=== PATIENT | male | born 1965 | race Caucasian/White ===

== ENCOUNTER 2018-11-26 00:29 | Outpatient (CLI) | payer BC, SELFPAY ==
--- NOTE | 2018-11-26 08:30 | ETT_ITS ---
APPROVED REPORT Exam: Exercise Treadmill Patient Location: Out-Patient Room/Bed: Stress Nurse: Jennifer Hayes RN Rhythm: NSR Indications: Pt reports a history of a cardiac stent in 2013. Pt states he has had no chest pain symp toms since his cardiac stent. Pt is here for a CDL physical clearance. Pt smokes cigars occasionally. Medical History Medical History: CAD s/p stent Medications: Atorvastatin. Aspirin. Nitroglycerin. Allergies: Bisacodyl. Cardiac Risk Factors: Smoking Previous Cardiac Procedures: PCI Pretest Chest Pain Characteristics: No chest pain Exercise History: Physically active Stress Test Details Test: Exercise stress testing was performed using a Young protocol. Rest Stress HR Resting HR: 70 bpm Max Heart Rate (APMHR): 166 bpm Max HR Achieved: 171 bpm Target HR (85% APMHR): 141 bpm % of APMHR: 103 Recovery HR: 99 bpm HR response to stress: Normal HR response to stress BP Resting BP: 146/88 mmHg Max BP: 210/76 mmHg Recovery BP: 140/76 mmHg BP response to stress: Normal blood pressure response to stress. ECG Resting ECG: Sinus Rhythm ST Change: Normal Arrhythmia: None Recovery ECG: Sinus Rhythm Recovery ST Change: Normal Recovery Arrhythmia: None Clinical Reason for Termination: Maximal effort Exercise duration: 12 min Highest Stage Achieved: Stage 4: 4.2 mph at 16% grade. Exercise capacity: 13.48 METs Overall Exercise Capacity for Age: Excellent Scale: Active Angina Score: None Stress ECG Conclusion 1. Excellent exercise capacity 2. This represents a maximal stress test 3. There is no evidence of ischemia on ECG portion of stress exam 4. This is a normal ECG stress exam. 5. The Posey Score (12) estimates an annual cardiovascular mortality of 0% and a five year survival of 96% Using the Posey Score there is a low probability of any angiographic coronary disease. Test Summary standing 94 152/94 1 03:00 10 1.7 107 4.64 172/94 2 02:59 12 2.5 120 7.05 182/90 3 03:00 14 3.4 138 10.16 196/92 4 03:00 16 4.2 171 13.48 1 min recovery 129 210/76 3 min recovery 98 186/78 6 min recovery 99 140/76
== END 2018-11-26 00:49 ==
PROVIDERS: PCP Internal Medicine; Visit Provider Nurse Practitioner Family
DX: I25.10 Atherosclerotic heart disease of native coronary artery without angina pectoris (principal); Z95.5 Presence of coronary angioplasty implant and graft; I10 Essential (primary) hypertension; F17.200 Nicotine dependence, unspecified, uncomplicated; Z02.79 Encounter for issue of other medical certificate
CPT/HCPCS: 93017

== ENCOUNTER 2019-03-16 00:45 | Outpatient (CLI) | payer BC, SELFPAY ==
--- NOTE | 2019-03-16 14:55 | DI.RAD_ITS ---
EXAM: XR KNEE RT 4V AP,LAT,TIFFANY,PAT INDICATION: PATELLOFEMORAL PAIN X 8 MONTHS. COMPARISON: No exams were available for comparison TECHNIQUE: 2D digital imaging was performed. FINDINGS: Joint spaces are well maintained. There is mild periarticular spurring. There is a small circumscri bed rounded bony density seen on the lateral view posteriorly, which could represent a loose body jodi karissa ossicle. No joint effusion is seen. IMPRESSION: Mild degenerative changes. Question loose body.
== END 2019-03-16 01:05 ==
PROVIDERS: PCP Internal Medicine; Visit Provider Chiropractor Orthopedic
DX: M79.604 Pain in right leg (principal); M25.561 Pain in right knee; M17.11 Unilateral primary osteoarthritis, right knee
CPT/HCPCS: 73564

== ENCOUNTER 2019-08-12 21:37 | Outpatient (REF) | payer BC, SELFPAY ==
[2019-08-12 21:18] LABS: Calculated LDL 81 mg/dL (<100); Cholesterol 138 mg/dL (<200); HDL Cholesterol 28 mg/dL (40-60); Triglyceride 148 mg/dL (<150)
== END 2019-08-12 21:57 ==
LOC: NCHCN 21:37
PROVIDERS: PCP Internal Medicine; Visit Provider Internal Medicine
DX: Z00.00 Encounter for general adult medical examination without abnormal findings (principal); I25.10 Atherosclerotic heart disease of native coronary artery without angina pectoris; E66.9 Obesity, unspecified
CPT/HCPCS: 80061

== ENCOUNTER 2020-01-06 08:58 | Outpatient (REF) | payer BC, SELFPAY ==
[2020-01-07 10:24] LABS: Calculated LDL 78 mg/dL (<100); Cholesterol 145 mg/dL (<200); HDL Cholesterol 32 mg/dL (40-60); Triglyceride 175 mg/dL (<150)
== END 2020-01-06 09:18 ==
LOC: NCHCN 08:58
PROVIDERS: PCP Internal Medicine; Visit Provider Internal Medicine
DX: I25.10 Atherosclerotic heart disease of native coronary artery without angina pectoris (principal); E66.9 Obesity, unspecified; Z68.33 Body mass index [BMI] 33.0-33.9, adult
CPT/HCPCS: 80061

== ENCOUNTER 2020-01-10 18:55 | Emergency (ER) | payer OTHER, SELFPAY ==
[2020-01-10 19:03] VITALS: BP 156/84; PULSE 98; RESP 16; TEMP 36.6; O2SAT 98
--- NOTE | 2020-01-10 19:38 | W.ED.GENAD ---
Discharge Plan Disposition Patient Disposition: HOME Condition: Stable Discharge Details Clinical Impression: Contusion of lower leg, right, Fracture of left shoulder Primary Care Provider: Zohaib Han ED Provider: Bart Veloz Home Meds and New Rx's Prescriptions: Continued atorvastatin 80 MG tablet 80 mg PO HS RF: 0 aspirin [Aspir-81] 81 MG tablet,delayed release (DR/EC) 81 mg PO DAILY RF: 0 Joint Support Complex 1 EACH capsule 2 ea PO BID RF: 0 ibuprofen 600 MG tablet 600 mg PO TID PRN PRNQty: 60 RF: 0 nitroglycerin 0.4 MG tablet, sublingual 0.4 mg Sublingual DIRECTED RF: 0 multivitamin 1 EACH capsule 1 ea PO DAILY RF: 0 Discharge Instructions Instructions: How to Use a Sling (ED), Contusion in Adults (ED) Additional Instructions: Please take ibuprofen as prescribed 600 mg every 6-8 hours as needed for pain. Use shoulder sling. Please follow-up with orthopedics. Please contact your primary care physician or occupational medicine as directed by your employer to arrange follow-up. Return to the ER for any worsening or new concerning symptoms. Stand Alone Forms: Work Release Referrals: [facility] [Provider Group] Occupational Medicine [Outside] Zohaib Han MD [Primary Care Provider] - Medical Decision Making 54-year-old male here with workplace injury, slipped and fell on file injuring right lower leg and left shoulder. Suspect contusion to the ED right anterior medial mid lower leg. Consider fracture. No signs of compartment syndrome. Suspect shoulder strain. Consider fracture. X-ray of the right lower extremity was reviewed and interpreted by radiology: IMPRESSION: No acute fracture or dislocation. Contusions of the medial right calf. X-ray of the left shoulder was reviewed and interpreted by radiology: IMPRESSION: 1. Possible avulsion fragment measuring 1.8 cm adjacent to the greater tuberosity. Comparison with prior radiographs or correlation with history of calcific tendinosis or loose body is suggested. Follow-up MRI may be useful for evaluation. 2. Mild to moderate degenerative joint space narrowing. No dislocation. Reviewed results with the patient. Patient was placed in a shoulder sling. Patient was advised to keep his leg elevated as much as possible over the next few days and continue with anti-inflammatories. He was encouraged to return for any signs of compartment syndrome which were reviewed with him. I will refer the patient to follow-up with orthopedics for his shoulder injury. HPI General Mode of arrival: ambulatory. Date/Time Provider Initiated Documentation: 01/10/20 18:55. Limitations to Documentation: no limitations. Information obtained by: patient. HPI Narrative: 54-year-old male presents with chief complaint of right lower leg pain. Patient notes he slipped off of a plow today while climbing over and impacted his right medial mid lower leg on the plow. He did not sustain laceration. During the fall he also tried the catch himself with his left arm and injured his shoulder. This occurred this morning. He did continue to work. Pain has worsened over the course of the day. No associated numbness or tingling. Pain is leg is now moderate, worse with ambulation. Related Data Home Medications Medication Instructions Recorded Confirmed aspirin [Aspir-81] 81 mg PO DAILY 04/07/15 01/10/20 atorvastatin 80 mg PO HS tab-cap 11/25/16 01/10/20 multivitamin 1 ea PO DAILY 12/13/16 01/10/20 nitroglycerin 0.4 mg SUBLINGUAL DIRECTED 12/13/16 01/10/20 Joint Support Complex 2 ea PO BID 05/20/17 01/10/20 ibuprofen 600 mg PO TID PRN PRN #60 tablet 05/22/17 01/10/20 Previous Rx's Medication Instructions Recorded ibuprofen 600 mg PO TID PRN PRN #60 tablet 05/22/17 Allergies Allergy/AdvReac Type Severity Reaction Status Date / Time bisacodyl AdvReac Unverified 06/02/17 11:12 [From Dulcolax (bisacodyl)] General Stated Complaint: Orthopedic JARROD: 3 Review of Systems Musculoskeletal Musculoskeletal: Reports as per HPI Integumentary/Breasts Comments: No laceration Neurologic Neurologic: Reports as per HPI [facility] Medical History CAD (coronary artery disease) Obesity Surgical History Colonoscopy - MAC (12/16/16) Repair of umbilical hernia Social History Smoking/Tobacco Use Status: Former Tobacco Use Smoking risk assessment performed?: Yes Drug use: Never Do you feel safe in your relationship?: Yes Exam Const General: cooperative and no acute distress HENMT Mouth: moist mucous membranes Cardio Rate: regular rate and not tachycardic Rhythm: regular rhythm Skin General skin exam: no rashes or lesions noted Neuro General: patient alert, patient awake, patient oriented x3 and tone normal Motor: other (Motor intact distally right lower extremity) Sensory Exam: no sensory deficits noted (Distally right lower extremity) Extrem Left upper extremity: shoulder/upper arm Details: tenderness Location: of the proximal humerus, axillary nerve sensory function normal and other (Full range of motion but pain with motion above 90 degrees abduction); no swelling Right lower extremity: lower leg Details: tenderness Location: of the midshaft tibia, localized swelling and ecchymosis (Radial mid tibia); no lacerations Course Vital Signs Vital signs: Vital Signs Temperature 36.6 C 01/10/20 19:03 Pulse 98 H 01/10/20 19:03 Respiratory Rate 16 01/10/20 19:03 Blood Pressure 156/84 H 01/10/20 19:03 Pulse Oximetry 98 01/10/20 19:03 Temperature 36.6 C 01/10/20 19:03 Temperature Source Temporal Artery Scan 01/10/20 19:03 Pulse 98 H 01/10/20 19:03 Respiratory Rate 16 01/10/20 19:03 Respiratory Effort 01/10/20 19:07 Blood Pressure 156/84 H 01/10/20 19:03 Blood Pressure Position Supine 01/10/20 19:03 Pulse Oximetry 98 01/10/20 19:03 Oxygen Delivery Method Room Air 01/10/20 19:03 Oxygen Flow Rate 0 01/10/20 19:03 Pain Level 8 01/10/20 19:13
--- NOTE | 2020-01-10 19:40 | DI.RAD_ITS ---
EXAM: XR SHOULDER LT COMPLETE 2+V CLINICAL HISTORY: pain lateral, injury. TECHNIQUE: 2D digital imaging was performed. COMPARISON: No exams were available for comparison FINDINGS: BONES: No acute fracture is present. No bony destructive lesion is seen. JOINTS: No dislocation present. There are degenerative changes at the AC joint and glenohumeral joint . There is spurring at the tip the acromion. SOFT TISSUE: Normal. There is a smoothly marginated calcification adjacent to the humeral head, consi stent calcific tendinosis. IMPRESSION: Calcific tendinosis. Mild degenerative changes. DATA REPOSITORY: RADIATION DOSE DELIVERED:
--- NOTE | 2020-01-10 19:41 | DI.RAD_ITS ---
EXAM: XR TIB/FIB RT CLINICAL HISTORY: pain, injury, bruising medial lower leg. TECHNIQUE: 2D digital imaging was performed. COMPARISON: No exams were available for comparison FINDINGS: BONES: No acute fracture is present. No bony destructive lesion is seen. Visualized portion of knee a nd ankle joints are unremarkable. SOFT TISSUE: Diffuse soft tissue edema. IMPRESSION: Soft tissue edema. No acute bony abnormality. DATA REPOSITORY: RADIATION DOSE DELIVERED:
--- NOTE | 2020-01-10 19:52 | DI.VRAD_ITS ---
PROCEDURE INFORMATION: Exam: XR Left Shoulder Exam date and time: 01/10/2020 7:40 PM Age: 54 years old Clinical indication: Injury or trauma; Fall; Work related; Blunt trauma (contusions or hematomas); Left; Injury date: 01/10/20; Injury details: Slipped and caught self injuring shoulder TECHNIQUE: Imaging protocol: XR Left shoulder. Views: 2 or more views. COMPARISON: No relevant prior studies available. FINDINGS: Bones/joints: A 1.8 cm oval calcific density adjacent to the greater tuberosity. Consider avulsion fragment or less likely a loose body or calcific tendinosis. No fracture of the humerus or dislocation at the shoulder joint. Mild glenohumeral and moderate acromioclavicular joint space narrowing. Lungs: The visualized left upper lung field is clear. Soft tissues: Normal. IMPRESSION: 1. Possible avulsion fragment measuring 1.8 cm adjacent to the greater tuberosity. Comparison with prior radiographs or correlation with history of calcific tendinosis or loose body is suggested. Follow-up MRI may be useful for evaluation. 2. Mild to moderate degenerative joint space narrowing. No dislocation. Dictated and Authenticated by: Adam Vincent MD. Ordering:BRYANNA Arriaga MD
--- NOTE | 2020-01-10 19:53 | DI.VRAD_ITS ---
PROCEDURE INFORMATION: Exam: XR Right Tibia and Fibula Exam date and time: 01/10/2020 7:40 PM Age: 54 years old Clinical indication: Injury or trauma; Fall; Work related; Blunt trauma; Lower leg; Right; Injury date: 3; Injury details: Slipped and fell at work hitting on a plow, bruising and pain mid to lower shaft TECHNIQUE: Imaging protocol: XR Right tibia and fibula. Views: 2 views. COMPARISON: CR XR KNEE RT 4V AP,LAT,TIFFANY,PAT 03/16/2019 2:47 PM FINDINGS: Bones/joints: No acute fracture or dislocation. Soft tissues: Extensive soft tissue edema in the medial right calf. IMPRESSION: No acute fracture or dislocation. Contusions of the medial right calf. Dictated and Authenticated by: Adam Vincent MD. Ordering:BRYANNA Arriaga MD
[2020-01-10 20:10] VITALS: BP 144/82; PULSE 88; RESP 16; O2SAT 97
[2020-01-10 20:21] VITALS: BP 156/84; PULSE 98; RESP 18; O2SAT 98
== END 2020-01-10 20:21 | disposition home or self-care (01) ==
PROVIDERS: Emergency Provider Student in an Organized Health Care Education/Training Program; PCP Internal Medicine
DX: S80.11XA Contusion of right lower leg, initial encounter (principal); S42.92XA Fracture of left shoulder girdle, part unspecified, initial encounter for closed fracture; W22.8XXA Striking against or struck by other objects, initial encounter; Y99.0 Civilian activity done for income or pay
CPT/HCPCS: 99284; 73030; 73590; 99282; L3650

== ENCOUNTER 2020-01-24 14:07 | Outpatient (CLI) | payer OTHER, BC, SELFPAY ==
--- NOTE | 2020-01-24 | DI.US_ITS ---
EXAM: US LOWER EXTREMITY VENOUS RT CLINICAL HISTORY: SWELLING RT LOWER LEG R22.41, RT CALF PAIN M79.661 TECHNIQUE: Ultrasound performed using standard protocol. COMPARISON: US STRESS ECHOCARDIGRAM {[id number]} from 04/07/2014 FINDINGS: Duplex evaluation of the deep venous system of the right lower extremity was performed according to t usual protocol. There is no evidence of deep venous thrombosis and visualized superficial vessels appear normal as we ll. There is a complex avascular predominantly cystic mass of the right medial calf, the appearance is co nsistent with hematoma although other etiologies are not excluded on the basis of this examination. Clinical correlation requested. IMPRESSION: No evidence of DVT. Presumed medial calf hematoma as described above. This measures about 55 x 33 x 21 millimeters in diameter. DATA REPOSITORY:
== END 2020-01-24 14:27 ==
PROVIDERS: PCP Internal Medicine; Visit Provider Internal Medicine
DX: R22.41 Localized swelling, mass and lump, right lower limb (principal); M79.661 Pain in right lower leg; R93.6 Abnormal findings on diagnostic imaging of limbs
CPT/HCPCS: 93971

== ENCOUNTER 2020-05-02 00:57 | Outpatient (CLI) | payer BC, SELFPAY ==
--- NOTE | 2020-05-02 08:00 | ETT_ITS ---
APPROVED REPORT Exam: Exercise Treadmill Patient Location: Out-Patient Room/Bed: Stress Nurse: Marbella Posadas RN Ordering Provider:KINGS MANCUSO, Contact Number: [phone] BMI: 32.63 Baseline Rhythm: Sinus Rhythm Indications: CAD, HEALTH EXAM OF DEFINED SUBPOPULATION. Medical History Medical History: Obesity, HTN, HLD, CAD. Cardiac Medications: Aspirin, Nitro SL, Rosuvastatin, Allergies: Docusate sodium Cardiac Risk Factors: HTN, Hyperlipidemia, CVD, Obesity Previous Cardiac Procedures: PCI w/ stent placement (unknown date) Pretest Chest Pain Characteristics: No chest pain Exercise History: Sedentary Physical Disabilities: None Lung Sounds: Clear to auscultation Heart Sounds: Regular Stress Test Details Test: Exercise stress testing was performed using a Young protocol. Rest Stress HR Resting HR Supine: 77 bpm Max Heart Rate (APMHR): 165 bpm Resting HR Standin bpm Target HR (85% APMHR): 140 bpm Max HR Achieved: 169 bpm % of APMHR: 102 Recovery HR: 99 bpm HR response to stress: Normal HR response to stress BP Resting BP Supine: 148/98 mmHg Resting BP Standin/94 mmHg Max BP: 192/84 mmHg Recovery BP: 150/88 mmHg BP response to stress: Normal blood pressure response to stress. ECG Resting ECG: Sinus Rhythm Ectopy: None. Stress ECG: Sinus Tachycardia ST Change: No significant ST segment changes noted Arrhythmia: PVC Recovery ECG: Sinus Tachycardia Recovery ST Change: No significant ST segment changes noted Recovery Arrhythmia: PAC Clinical Reason for Termination: Fatigue Stress Symptoms: General Fatigue Exercise duration: 12 min0 sec Highest Stage Reached: Stage 4: 4.2 mph at 16% grade. Exercise capacity: 13.48 METs Posey Treadmill Score: 11.4 Rate Pressure Product: 69021 Stress ECG Conclusion 1. The resting electrocardiogram was normal 2. Patient exercised on the Young protocol and completed a workload of 13.48 METS. There were no sym ptoms of angina 3. Normal heart rate and blood pressure response to exercise. The patient achieved 100% of predicted heart rate for age 4. Electrocardiographically there was no evidence of myocardial ischemia 5. Sporadic atrial and ventricular ectopic beats were noted Posey Treadmill Score is 11.4 which is Low risk. Stress Test Summary STAGE Time (mins) Speed (mph) Grade (%) HR BP SYMPTOMS METS Supine 77 148/98 Standing 88 150/94 1 3 1.7 10 111 152/96 4.6 2 6 2.5 12 120 160/90 7 3 9 3.4 14 135 174/88 10.2 4 12 4.2 16 169 12.9 1 min recovery 141 192/84 3 min recovery 107 174/88 6 min recovery 104 150/88
== END 2020-05-02 01:17 ==
PROVIDERS: PCP Internal Medicine; Visit Provider Internal Medicine
DX: I49.1 Atrial premature depolarization (principal); I49.3 Ventricular premature depolarization; I25.10 Atherosclerotic heart disease of native coronary artery without angina pectoris; I10 Essential (primary) hypertension; E78.5 Hyperlipidemia, unspecified; E66.9 Obesity, unspecified
CPT/HCPCS: 93017

== ENCOUNTER 2020-05-12 09:10 | Outpatient (CLI) | payer BC, SELFPAY ==
[2020-05-12 10:12] LABS: Source Nasal/Nares
[2020-05-12 12:34] LABS: COVID-19 PCR Negative (Negative)
== END 2020-05-12 09:11 | disposition home or self-care (01) ==
LOC: LBO 09:12
PROVIDERS: PCP Internal Medicine; Visit Provider Family Medicine
DX: Z20.822 Contact with and (suspected) exposure to COVID-19 (principal)
CPT/HCPCS: 87635

== ENCOUNTER 2020-05-22 19:51 | Outpatient (CLI) | payer OTHER, SELFPAY ==
--- NOTE | 2020-05-22 09:40 | DI.MRI_ITS ---
EXAM: MR UPPER JOINT LT WO CLINICAL HISTORY: SHOULDER PAIN, ? ROTATOR CUFF TEAR. TECHNIQUE: Multiplanar multisequence MRI was performed. COMPARISON: CR,XR XR SHOULDER LT COMPLETE 2+V from 01/10/2020 FINDINGS: BONES: There is no fracture or contusion pattern. JOINTS: Mild degenerative changes are seen at the acromioclavicular joint. The glenohumeral joint is normal. TENDONS: Supraspinatus: There is hyperintense signal seen in the supraspinatus tendons consistent with a parti al tear. There is thickening of the tendon consistent with tendinosis. Infraspinatus: Unremarkable. Subscapularis: There is thickening and hyperintense signal seen in the subscapularis tendon. This ma y represent tendinosis and/or partial tear. Teres Minor: Unremarkable. Biceps and [place]: Unremarkable. MUSCLES: Unremarkable. GLENOID LABRUM: Unremarkable on this noncontrast examination. SOFT TISSUES: Unremarkable. LIGAMENTS: Unremarkable. OTHER: Subacromial and subdeltoid bursae are unremarkable. IMPRESSION: 1. Findings suspicious for partial thickness tear of the supraspinatus tendon. 2. Tendinosis and/or partial tear of the subscapularis tendon. 3. Mild degenerative changes of the acromioclavicular joint. DATA REPOSITORY:
== END 2020-05-22 20:11 ==
PROVIDERS: PCP Internal Medicine; Visit Provider Chiropractor Orthopedic
DX: M25.512 Pain in left shoulder (principal); M19.012 Primary osteoarthritis, left shoulder; M75.82 Other shoulder lesions, left shoulder
CPT/HCPCS: 73221

== ENCOUNTER 2021-07-02 09:42 | Outpatient (CLI) | payer OTHER, SELFPAY ==
--- NOTE | 2021-07-02 08:45 | DI.RAD_ITS ---
Exam(s) XR KNEE RT 3V AP,LAT,TIFFANY EXAM: XR KNEE RT 3V AP,LAT,TIFFANY CLINICAL HISTORY: right knee pain. TECHNIQUE: 2D digital imaging was performed of the right knee. Three views obtained. AP, lateral an d PA tunnel views were obtained. COMPARISON: CR XR KNEE RT 4V AP,LAT,TIFFANY,PAT from 03/16/2019 FINDINGS: BONES: No acute fracture is present. No bony destructive lesion is seen. JOINTS: The knee is normally aligned. There is a tiny joint effusion. There is mild narrowing of the medial femoral tibial joint. Mild spurring is seen at the posterior patella and the medial femoral tibial joint. SOFT TISSUE: Normal. IMPRESSION: Mild degenerative changes and small joint effusion. DATA REPOSITORY: RADIATION DOSE DELIVERED:
== END 2021-07-02 09:43 | disposition home or self-care (01) ==
LOC: DIORS 09:42
PROVIDERS: PCP Internal Medicine; Visit Provider Internal Medicine
DX: M25.561 Pain in right knee (principal); M25.461 Effusion, right knee; M17.11 Unilateral primary osteoarthritis, right knee
CPT/HCPCS: 73562

== ENCOUNTER → 2021-09-17 00:51 | Outpatient (CLI) | payer OTHER, SELFPAY ==
--- NOTE | 2021-09-17 06:30 | DI.MRI_ITS ---
Exam(s) MR LOWER JOINT RT WO EXAM: MR LOWER JOINT RT WO CLINICAL HISTORY: pain, internal derangement rt knee, m23.91 TECHNIQUE: Multiplanar multisequence MRI was performed.. COMPARISON: CR XR KNEE RT 3V AP,LAT,TIFFANY from 07/02/2021 FINDINGS: MR examination of the knee was performed according to the usual protocol. There is a small knee joint effusion. There is a small Pringle cyst, approximately 1 cm. There is an apparent less than 1 cm in diameter loose joint body projected posteriorly adjacent to the tibial att achment of the posterior cruciate ligament. There is apparent tearing of the medial gastrocnemius insertion on the femur with associated small ga nglion cyst or capsular tear. No significant bony signal abnormality seen. Medial tibiofemoral joint: The articular cartilage of the femur and tibia is thinned with some a tiny focal defects of the femoral articular cartilage centrally period. The meniscus and attachments moy ear intact. The medial collateral ligament appears intact. No posteromedial corner injury seen. Lateral tibiofemoral joint: The articular cartilage of the femur and tibia appears well maintained. The meniscus and attachments appear intact. The lateral collateral ligament complex and posterolater al corner structures appear intact. Patellofemoral joint and extensor mechanism: The articular cartilage of the patellofemoral joint show s mild to moderate thinning with no focal defect period. The superior and inferior patellar fat pads appear normal with no signal abnormality. The quadriceps tendon and patellar tendon appear intact with no evidence of a tear, however there lake s appear to be mildly abnormal signal in the patellar tendon adjacent to its patellar and tibial anton chments consistent with mild tendinosis.. The medial and lateral retinacula appear intact. Cruciate ligaments: Cruciate ligaments and attachments appear normal with no evidence of a tear. Tibiofibular joint: No specific abnormality involving the tibiofibular joint. IMPRESSION: Degenerative cartilaginous changes involving patellofemoral and medial tibiofemoral joint as describe d above. Apparent partial thickness tearing of medial gastrocnemius attachment on the femur. Small loose joint body noted posteriorly. Additional findings as described above. DATA REPOSITORY:
== END ==
PROVIDERS: PCP Internal Medicine; Visit Provider Student in an Organized Health Care Education/Training Program
DX: M22.2X1 Patellofemoral disorders, right knee (principal); M17.11 Unilateral primary osteoarthritis, right knee; M23.41 Loose body in knee, right knee; S76.811A Strain of other specified muscles, fascia and tendons at thigh level, right thigh, initial encounter; X58.XXXA Exposure to other specified factors, initial encounter
CPT/HCPCS: 73721

== ENCOUNTER 2021-12-12 07:29 | Day surgery (SDC) | payer OTHER, SELFPAY ==
[2021-12-12] VITALS (10 sets, daily range): BP systolic 96–159; BP diastolic 56–97; PULSE 58–104; RESP 13–18; TEMP 36–36.3; O2SAT 94–99; BMI 33.8
--- NOTE | 2021-12-12 06:42 | W.ANESPRE ---
General Info Date of Service Date Performed: 12/12/21 Height: 5 ft 10 in Weight: 107.048 kg Body Mass Index (BMI): 33.8 Surgical Procedure: Operation Date: 12/12/21 09:25 Proposed Procedure Side Surgeon p Knee Arthroscopy Right Khalif Drake MD Meds Allergies and Home Medications Allergies Allergy/AdvReac Type Severity Reaction Status Date / Time bisacodyl AdvReac Unverified 12/12/21 07:46 [From Dulcolax (bisacodyl)] Home Medication Medication Instructions Recorded aspirin 81 mg tablet,delayed 81 mg PO DAILY 04/07/15 release (Aspir-) nitroglycerin 0.4 mg sublingual 0.4 mg sublingual DIRECTED 12/13/16 tablet amlodipine 5 mg tablet 5 mg PO DAILY 06/06/20 rosuvastatin 40 mg tablet 40 mg PO DAILY 06/13/21 acetaminophen 500 mg tablet 1,000 mg PO TID #90 tabs 12/12/21 hydrocodone 5 mg-acetaminophen 325 1 tab PO Q6H PRN pain #6 tabs 12/12/21 mg tablet ibuprofen 600 mg tablet 600 mg PO TID PRN pain #90 tabs 12/12/21 Current Visit Medications: Current Medications Generic Name Dose Route Start Last Admin Trade Name Freq PRN Reason Stop Dose Admin Acetaminophen 1,000 mg 12/12/21 06:00 Acetaminophen 500 Mg Tab PO 12/12/21 16:00 PREOP EITAN Celecoxib 400 mg 12/12/21 06:00 Celecoxib 200 Mg Cap PO 12/12/21 16:00 PREOP EITAN Gabapentin 300 mg 12/12/21 06:00 Gabapentin 300 Mg Cap PO 12/12/21 16:00 PREOP EITAN Ringer's Solution 1,000 mls @ 80 mls/hr 12/12/21 06:00 IV 01/10/22 23:59 INFUSION EITAN Cefazolin Sodium/Dextrose 2 gm in 50 mls @ 100 mls/hr 12/12/21 06:00 Ancef Duplex IVPB 12/12/21 16:00 PREOP EITAN IV Miscellaneous Supplies 1 each 12/12/21 06:00 Iv Access IV 01/10/22 23:59 DIRECTED EITAN Sodium Chloride 0 ml 12/12/21 06:00 Normal Saline Flush 10 Ml Syr IV 01/10/22 23:59 PRN PRN Sodium Chloride 0 ml 10/26/22 06:00 Normal Saline 10 Ml Vial IJ 01/10/22 23:59 DIRECTED PRN Sterile Water 0 ml 12/12/21 06:00 Water,Injection,Sterile 10 Ml Vial IJ 01/10/22 23:59 DIRECTED PRN PFSH Active Problems Active Problems: Problem Status Onset Code Calcific tendonitis of left shoulder M75.32 Left rotator cuff tear M75.102 Carpal tunnel syndrome of left wrist 01/23/17 G56.02 Hypertension I10 Degenerative joint disease of right knee M17.11 Tear of medial meniscus of right knee S83.241A Medical History Medical History CAD (coronary artery disease) Obesity Surgical History Surgical History Colonoscopy - MAC (12/16/16) History of carpal tunnel surgery of left wrist Hx of right coronary artery stent placement Repair of umbilical hernia Tobacco Smoking/Tobacco Use Status: Former Tobacco Use Alcohol Alcohol Intake: current Alcohol intake frequency: holidays/special occasions only Alcohol type: beer Substance Use Substance use: Never Substance use type: does not use Vital Signs and Lab Results Lab Results Blood Type / Crossmatch: No Data to Display Complete Blood Count: No Data to Display Complete Metabolic Panel: No Data to Display Liver Function Panel: No Data to Display Coagulation Panel: No Data to Display Cardiac Panel: No Data to Display Arterial Blood Gas: No Data to Display Venous Blood Gas: No Data to Display Pancreas Panel: No Data to Display Thyroid Panel: No Data to Display Infectious Disease: No Data to Display Blood Cultures: No Data to Display Toxicology Panel: No Data to Display Imaging and Studies Imaging and Studies Study information below may be from another EMR and interpreted by another provider. Please see original notes in EMR for more complete details. Stress Test Summary: 05/02/2020 Stress ECG Conclusion 1. The resting electrocardiogram was normal 2. Patient exercised on the Young protocol and completed a workload of 13.48 METS. There were no symptoms of angina 3. Normal heart rate and blood pressure response to exercise. The patient achieved 100% of predicted heart rate for age 4. Electrocardiographically there was no evidence of myocardial ischemia 5. Sporadic atrial and ventricular ectopic beats were noted Posey Treadmill Score is 11.4 which is Low risk. Anesthesia Assessment and Plan Anesthesia History Personal History: No History of Anesthesia Complications Family History: No Family History of Anesthesia Complications Exercise Tolerance Exercise Tolerance: Metabolic Equivalents>4 Pertinent Negatives Pertinent Negatives: No Symptoms of GERD, No Major Cardiovascular Symptoms or Complaints, No Major Pulmonary Symptoms or Complaints and No History of CVA/TIA Cardiac & Pulmonary Exam Cardiac Exam: Normal S1/S2 Heart Sounds Pulmonary Exam: Clear Bilateral Breath Sounds Implantable Cardiac Device Does patient have a Pacemaker or an ICD?: No Airway Exam Known Difficult Airway: No Mallampati Class: 2 Mouth Opening: Normal (> 3cm) Thyromental Distance: Greater than 3 cm Neck Range of Motion: Full ROM Neck Circumference: Normal Teeth Condition: Normal Dentition ASA Classification ASA Score: ASA 3 Emergency Case?: No NPO Status NPO Status: NPO Clears >2 hours, Solids >8 hours Anesthesia Plan Resuscitation Status: Full Code Anesthesia Technique: Spinal Anesthesia Airway Planned: Natural Airway Monitors Used: Standard Monitors
--- NOTE | 2021-12-12 07:46 | PDOC.DSDIS_ITS ---
Date of service: 12/12/21 Time of Service: 07:46 Discharge Plan Disposition Patient Disposition: HOME Condition: Good Discharge Details Reason For Visit: R knee arthroscopy Attending Provider: Khalif Drake Primary Care Provider: Can [facility] Home Meds and New Rx's Prescriptions: New acetaminophen 500 mg tablet 1,000 mg PO TID Qty: 90 0RF hydrocodone-acetaminophen 5-325 mg tablet 1 tab PO Q6H PRN (Reason: pain) Qty: 6 0RF ibuprofen 600 mg tablet 600 mg PO TID PRN (Reason: pain) Qty: 90 0RF Continued amlodipine 5 mg tablet 5 mg PO DAILY rosuvastatin 40 mg tablet 40 mg PO DAILY aspirin [Aspir-81] 81 MG tablet,delayed release (DR/EC) 81 mg PO DAILY nitroglycerin 0.4 MG tablet, sublingual 0.4 mg Sublingual DIRECTED Discontinued ibuprofen 600 MG tablet 600 mg PO TID PRN PRNQty: 60 0RF naproxen sodium [Aleve] 220 mg Capsule 220 mg PO QID PRN Discharge Instructions Stand Alone Forms: Anesthesia Discharge Inst[facility]throsc[facility], [facility] ([facility]) Referrals: Khalif Drake MD [ [facility] STAFF PHYSICIAN] - Equipment/Supplies: Partial Weight Bearing Crutches Activity:: Activity as Tolerated Remove Dressings/Wound Care:: 72 hours Shower/Bathe:: 72 hours Diet:: As Tolerated Discharge Orders Discharge Orders: Discharge Order (Routine); Ordered 12/12/21 Ordered By: Stefano Moore DS: Diagnosis Discharge Diagnosis (1) Tear of medial meniscus of right knee: Status: Acute
--- NOTE | 2021-12-12 07:57 | HPE_ITS ---
Assessment and Plan Assessment and plan (1) Tear of medial meniscus of right knee: Status: Acute Assessment and plan: Right knee arthroscopy with partial medial menesectomy. Details of surgery were discussed with patient as well as risks and pertinent anatomy. All questions were answered. History of Present Illness Narrative: Mack presents today for a right knee arthroscopy with partial medial meniscectomy. He has had longstanding knee pain, for multiple years now, which was suddenly worsened a few months ago. He has failed conservative treatment including activity modification and therapy. None of these seem to reliably improve his symptoms. He also has tried intra-articular injections which did help his pain but for a short period of time. Since he has been conservative treatment, he was offered a right knee arthroscopy and is anxious to proceed. Review of Systems Constitutional Constitutional: Denies fever(s) ENT Ears, Nose, Mouth, and Throat: Denies dizziness and Denies sore throat Cardiovascular Cardiovascular: Denies chest pain, Denies palpitations and Denies dyspnea Respiratory Respiratory: Denies cough and Denies dyspnea Gastrointestinal Gastrointestinal: Denies abdominal pain, Denies melena, Denies hematochezia, Denies diarrhea, Denies nausea and Denies vomiting Genitourinary Genitourinary: Denies hematuria and Denies dysuria Neurologic Neurologic: Denies dizziness Endocrine Endocrine: Denies palpitations PFSH All Active Problems Calcific tendonitis of left shoulder (Acute) Left rotator cuff tear (Acute) Carpal tunnel syndrome of left wrist (Acute 01/23/17) Hypertension (Chronic) Degenerative joint disease of right knee (Acute) Depo-Medrol injection: 07/02/2021 Tear of medial meniscus of right knee (Acute) Medical History CAD (coronary artery disease) Obesity Surgical History Colonoscopy - MAC (12/16/16) History of carpal tunnel surgery of left wrist Hx of right coronary artery stent placement Repair of umbilical hernia Social History Smoking/Tobacco Use Status: Former Tobacco Use Quit Date: 02/17/17 Smoking risk assessment performed?: Yes Alcohol Intake: current Alcohol Intake frequency: holidays/special occasions only Alcohol type: beer Drug use: Never Substance use type: does not use Current gender identity: male Do you feel safe at home: Yes Do you feel safe in your relationship?: Yes Meds Allergies and Home Medications Allergies Allergy/AdvReac Type Severity Reaction Status Date / Time bisacodyl AdvReac Unverified 12/12/21 07:46 [From Dulcolax (bisacodyl)] Home Medications Medication Instructions Recorded Confirmed Type aspirin 81 mg tablet,delayed 81 mg PO DAILY 04/07/15 12/11/21 History release (Aspir-) nitroglycerin 0.4 mg sublingual 0.4 mg sublingual DIRECTED 12/13/16 12/11/21 History tablet amlodipine 5 mg tablet 5 mg PO DAILY 06/06/20 12/11/21 History rosuvastatin 40 mg tablet 40 mg PO DAILY 06/13/21 12/12/21 History acetaminophen 500 mg tablet 1,000 mg PO TID #90 tabs 12/12/21 Rx hydrocodone 5 mg-acetaminophen 325 1 tab PO Q6H PRN pain #6 tabs 12/12/21 Rx mg tablet ibuprofen 600 mg tablet 600 mg PO TID PRN pain #90 tabs 12/12/21 Rx Exam Const General: cooperative and no acute distress Orientation: alert and awake [facility] Head: normocephalic and atraumatic Eyes Conjunctivae: conjunctivae normal Sclera: sclerae normal Resp Effort & Inspection: normal respiratory effort Auscultation: clear to auscultation bilaterally and no wheezes Cardio Rate: regular rate Rhythm: regular rhythm Heart Sounds: S1 normal, S2 normal and no murmurs Results Last Vital Signs Temp 97.3 F L 12/12/21 07:50 Pulse 80 12/12/21 07:50 Resp 16 12/12/21 07:50 BP 159/97 H 12/12/21 07:50 Pulse Ox 99 12/12/21 07:50
[2021-12-12] MEDS: Lactated Ringers 1,000 ML 80 ML IV (08:16)
[2021-12-12] MEDS: Celecoxib 200 MG CAP 400 MG PO (08:22)
[2021-12-12] MEDS: Gabapentin 300 MG CAP PO (08:22)
[2021-12-12] MEDS: Acetaminophen 500 MG TAB 1000 MG PO (08:23)
[2021-12-12] MEDS: ceFAZolin 2 GM/50 ML BAG IVPB (09:49)
[2021-12-12] MEDS: Bupivacaine 0.5% Pres-Free 30 ML VIAL (10:16)
--- NOTE | 2021-12-12 13:00 | W.ANESPOSTOP ---
Postoperative Evaluation Date, Time and Location Date Performed: 12/12/21 Time Performed: 13:00 Patient Location: Day Surgery Unit Vital Signs Most Recent Imported Vital Signs: Most Recent Vital Signs Temp Pulse Resp BP Pulse Ox 36.2 C L 58 L 14 107/70 98 12/12/21 12:05 12/12/21 12:05 12/12/21 12:05 12/12/21 12:05 12/12/21 12:05 Pain Score Most Recent Pain Score: Most Recent Pain Score Pain Level 0 12/12/21 12:05 Assessment Mental Status: Awake (Alert & Oriented to Patient Baseline) Airway and Respiratory Function: Patent airway with normal (patient baseline) respiratory exam Cardiovascular Function: Hemodynamically Stable Hydration Status: Adequately Hydrated Nausea & Vomiting: No Nausea or Vomiting Pain: Pt. Denies Any Pain Peripheral Nerve Block: Patient did not receive a nerve block
--- NOTE | 2021-12-12 13:09 | ROE_ITS ---
Date of service: 12/12/21 Time of Service: 13:09 Operative Note Operative Note DATE OF PROCEDURE: 12/12/21 PRE-OP DIAGNOSIS: Right Knee Medial Meniscus Tear POST-OP DIAGNOSIS: same PROCEDURE: Right Knee Arthroscopic Partial Medial Menisectomy SURGEON: Khalif Drake ANESTHESIA TYPE: General LMA/ETT Refer to Anesthesia Record ESTIMATED BLOOD LOSS: 0 PATHOLOGY: none sent COMPLICATIONS: None Patient was transported to: PACU Patient's condition: stable Indications: I have seen Alfredo in clinic for symptoms of a meniscus tear. This was confirmed based on MRI and exam findings. Nonoperative measures were exhausted but disability and pain persisted. I discussed knee arthroscopy with meniscal intervention with the patient. I reviewed the risks of the procedure to include, but not limited to, bleeding, infection, pain, stiffness, damage to nerves or vessels, recurrence, blood clot. Despite these risks, the patient elected to proceed. 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 The consent was reviewed with the patient and signed. The history and physical was updated. All questions were answered. He was taken back to the operating room. The patient was placed into the supine position on the operating room table. A nonsterile tourniquet was placed high onto the leg but not used. All bony prominences were well padded. Prophylactic antibiotics in the form of Cefazolin were administered. The right leg was then prepped with Chloraprep and draped in a standard fashion with stockinette and extremity drape. A timeout to confirm correct identity, side and site, proc edure, allergies, anesthesia, and medical concerns was performed. The leg was placed into a pneumatic leg gonzalez, SPIDER2. A standard lateral portal was made at the lateral border of the patella tendon in line with the inferior pole of the patella, soft spot. The skin and deep tissue was incised sharply and the blunt trochar was inserted atraumatically. A diagnostic arthroscopy was performed and the findings are listed above. The suprapatellar pouch had no significant inflammatory change. The patellofemoral articulation showed no articular damage as well as good tracking. The lateral gutter had no loose bodies and the medial gutter had no loose bodies. The knee was brought into some valgus stress in extension to open the medial compartment. A medial portal was made, localized by a spinal needle. The portal was created with an #11 blade through skin and capsule under direct visualization avoiding any meniscal injury. A probe was then inserted into the medial compartment. The medial compartment was fully inspected. The chondral surface of the tibia showed areas of grade I chondromalacia and the surface of the femur showed mostly grade I chondromalacia with some areas of increased thinning, grade 2. The medial meniscus had a complex tear involving the body and the posterior horn extending towards the anterior horn. This was a horizontal type tear with 2 separate components which were displaced with significant fraying along the meniscal surface. After evaluation, the meniscus was debrided down to a stable base using a series of biters and arthroscopic ivone. It was probed afterwards to confirm that the tear had been removed and the meniscus was stable. The notch was then inspected which showed an intact ACL and an intact PCL. The leg was then brought into a figure of 4 position. The lateral compartment was fully inspected with the arthroscope and a probe. The chondral surface of the lateral femur showed no significant chondromalacia. The chondral surface of the lateral tibia showed no significant chondromalacia. The lateral meniscus had no meniscal tear. After evaluation, the meniscus was debrided down to a stable base using a series of biters and arthroscopic ivone. It was probed afterwards to confirm that the tear had been removed and the meniscus was stable. Cartilage surfaces were debrided of any flaps, leaving any intact fiber s. The arthroscope was brought back into the suprapatellar pouch and the leg was in full extension. There was a very dense medial plica seen which was articulating with the medial femoral condyle. This was resected. The knee was thoroughly irrigated with the arthroscopic fluid on high flow and pressure. Inflow was stopped and excess fluid was removed. The wounds were closed with 4-0 Nylon. They were dressed with Xeroform, 4x4 gauze, ABD pad, Kerlix and an KAREN wrap. A cryo-cuff was applied. The patient tolerated the procedure well and was returned to the Same Day Surgery area in a stable condition suffering no known complication.
== END 2021-12-12 13:28 | disposition home or self-care (01) ==
PROVIDERS: PCP Family Medicine; Visit Provider Student in an Organized Health Care Education/Training Program
PROC: (CPT 29870; principal; 2021-12-12 09:15)
DX: M23.231 Derangement of other medial meniscus due to old tear or injury, right knee (principal); M94.261 Chondromalacia, right knee; I10 Essential (primary) hypertension; I25.10 Atherosclerotic heart disease of native coronary artery without angina pectoris; E66.9 Obesity, unspecified; Z68.33 Body mass index [BMI] 33.0-33.9, adult
CPT/HCPCS: 29881; J0690; J1100; J2405; J2704

== ENCOUNTER → 2022-10-07 00:32 | Outpatient (CLI) | payer OTHER, SELFPAY ==
--- NOTE | 2022-10-07 | ETT_ITS ---
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 Rest Stress HR Resting HR Supine: 71 bpm Max Heart Rate (APMHR): 162 bpm Resting HR Standin bpm Target HR (85% APMHR): 138 bpm Max HR Achieved: 143 bpm % of APMHR: 88 Recovery HR: 88 bpm HR response to stress: Normal HR response to stress BP Resting BP Supine: 150/94 mmHg Resting BP Standin/82 mmHg Max BP: 194/74 mmHg Recovery BP: 148/84 mmHg BP response to stress: Normal blood pressure response to stress. ECG Resting ECG: Sinus Rhythm Ectopy: None Stress ECG: Sinus Tachycardia ST Change: No significant ST segment changes noted Arrhythmia: None Recovery ECG: Sinus Rhythm Recovery ST Change: No significant ST segment changes noted Recovery Arrhythmia: None Clinical Reason for Termination: Fatigue Stress Symptoms: None Exercise duration: 9 min23 sec Highest Stage Reached: Stage 4: 4.2 mph at 16% grade. Exercise capacity: 10.78 METs Posey Treadmill Score: 8.7 Rate Pressure Product: [id number] Stress ECG Conclusion 1. The resting electrocardiogram was within normal limits 2. Patient exercised on the Young protocol and completed a workload of 10.78 METS 3. Normal heart rate and blood pressure response to exercise. Peak heart rate was 88% of maximum pre dicted for age 4. There was no electrocardiographic evidence of myocardial ischemia 5. There were no significant dysrhythmias Posey Treadmill Score is 8.7 which is Low risk. Stress Test Summary STAGE Time (mins) Speed (mph) Grade (%) HR BP SpO2 SYMPTOMS METS Supine 71 150/94 98 Standing 72 140/84 98 1 3 1.7 10 101 154/82 96 4.5 2 6 2.5 12 114 170/84 97 7 3 9 3.4 14 133 188/84 98 10 1 min recovery 114 194/74 98 3 min recovery 89 164/88 98 6 min recovery 88 148/84 98
== END ==
PROVIDERS: PCP Family Medicine; Visit Provider Nurse Practitioner Family
DX: I25.10 Atherosclerotic heart disease of native coronary artery without angina pectoris (principal)
CPT/HCPCS: 93017

== ENCOUNTER 2022-11-21 13:05 | Outpatient (REF) | payer OTHER, SELFPAY ==
[2022-11-21 14:35] LABS: HCT 46.4 % (40.0-50.0); HGB 15.3 g/dL (13.5-17.5); MCH 30.5 pg (27.0-33.0); MCV 92 fL (80-95); Platelet Count 284 10^3/uL (130-400); RBC 5.02 10^6/uL (4.36-5.78); RDW 11.4 % (11.8-14.1); RDW-SD 38.6 fL; WBC 5.74 10^3/uL (4.4-10.8)
[2022-11-21 14:57] LABS: ALT 19 U/L (16-63); AST 18 U/L (15-37); Albumin 4.4 g/dL (3.4-5.0); Alkaline Phosphatase 67 U/L (46-116); Anion Gap 6.2 mmol/L (3-11); BUN 22 mg/dL (7-18); Bilirubin, Total 0.5 mg/dL (0.2-1.0); CO2 29.8 mmol/L (21.0-32.0); CREATININE 1.3 mg/dL (0.70-1.30); Calcium 9.9 mg/dL (8.5-10.1); Calculated LDL 77 mg/dL (<100); Chloride 105 mmol/L (98-107); Cholesterol 134 mg/dL (<200); Estimated GFR 63.68 (mL/min/1.73m2); Glucose 112 mg/dL (74-106); HDL Cholesterol 37 mg/dL (40-60); Potassium 5.8 mmol/L (3.5-5.1); Sodium 141 mmol/L (136-145); Total Protein 7.6 g/dL (6.4-8.2); Triglyceride 101 mg/dL (<150)
== END 2022-11-21 13:06 | disposition home or self-care (01) ==
LOC: NCHCN 13:05
PROVIDERS: PCP Family Medicine; Visit Provider Family Medicine
DX: I25.10 Atherosclerotic heart disease of native coronary artery without angina pectoris (principal); Z86.79 Personal history of other diseases of the circulatory system; E66.9 Obesity, unspecified
CPT/HCPCS: 80053; 80061; 85027

== ENCOUNTER 2022-12-23 17:41 | Outpatient (REF) | payer OTHER, SELFPAY ==
[2022-12-23 21:37] LABS: Potassium 4.6 mmol/L (3.5-5.1)
== END 2022-12-23 17:42 | disposition home or self-care (01) ==
LOC: NCHCN 17:41
PROVIDERS: PCP Family Medicine; Visit Provider Family Medicine
DX: E87.5 Hyperkalemia (principal)
CPT/HCPCS: 84132

== ENCOUNTER 2024-01-13 16:46 | Outpatient (REF) | payer OTHER, SELFPAY ==
[2024-01-13 21:25] LABS: ALT 21 U/L (16-63); AST 22 U/L (15-37); Abs Immature Grans 0.02 10^3/uL (0.0-0.06); Absolute Basophil Count 0.04 10^3/uL (0.0-0.2); Absolute Eosinophil Count 0.11 10^3/uL (0.0-0.7); Absolute Lymphocyte Count 1.91 10^3/uL (1.2-3.4); Absolute Monocyte Count 0.73 10^3/uL (0.1-0.8); Albumin 4.4 g/dL (3.4-5.0); Alkaline Phosphatase 82 U/L (46-116); Anion Gap 7.9 mmol/L (3-11); BUN 16 mg/dL (7-18); Basophils % 0.5 %; Bilirubin, Total 0.42 mg/dL (0.2-1.0); CO2 28.1 mmol/L (21.0-32.0); CREATININE 1.1 mg/dL (0.70-1.30); Calcium 9.1 mg/dL (8.5-10.1); Chloride 102 mmol/L (98-107); Eosinophils % 1.4 %; Estimated GFR 77.33 (mL/min/1.73m2); Glucose 142 mg/dL (74-106); HCT 46.7 % (40.0-50.0); HGB 15.4 g/dL (13.5-17.5); Immature Grans % 0.3 %; LDL CHOLESTEROL 80 mg/dL (<100); Lymphocytes % 24.8 %; MCV 94 fL (80-95); MPV 10.2 fL (8.0-11.0); Monocytes % 9.5 %; Neutrophils % 63.5 %; Platelet Count 297 10^3/uL (130-400); Potassium 4.3 mmol/L (3.5-5.1); RBC 4.97 10^6/uL (4.36-5.78); RDW 11.5 % (11.8-14.1); RDW-SD 39.4 fL; Sodium 138 mmol/L (136-145); Total Protein 7.6 g/dL (6.4-8.2); WBC 7.71 10^3/uL (4.4-10.8)
[2024-01-13 21:26] LABS: C-Reactive Protein < 0.50 mg/dL (<or=0.5)
[2024-01-16 10:12] LABS: Lyme Ab w Rflx to Lyme Confirm Negative (Negative)
[2024-01-17 01:05] LABS: Anaplasma phagocytophilum Negative (Negative); B. miyamotoi PCR Negative (Negative); Babesia divergens/MO-1 Negative (Negative); Babesia duncani Negative (Negative); Babesia microti Negative (Negative); Ehrlichia chaffeensis Negative (Negative); Ehrlichia ewingii/canis Negative (Negative); Ehrlichia muris eauclairensis Negative (Negative)
== END 2024-01-13 16:47 | disposition home or self-care (01) ==
LOC: NCHCN 16:46
PROVIDERS: PCP Family Medicine; Visit Provider Family Medicine
DX: I25.10 Atherosclerotic heart disease of native coronary artery without angina pectoris (principal); M79.10 Myalgia, unspecified site
CPT/HCPCS: 80053; 83721; 87798; 85025; 86140; 86618

== ENCOUNTER 2025-01-17 21:05 | Outpatient (REF) | payer OTHER, SELFPAY ==
[2025-01-17 22:25] LABS: ALT 19 U/L (10-49); AST 29 U/L (<34); Albumin 4.6 g/dL (3.2-5.0); Alkaline Phosphatase 78 U/L (46-116); Anion Gap 10.2 mmol/L (3-11); BUN 21 mg/dL (9-23); Bilirubin, Total 0.40 mg/dL (0.2-1.2); CO2 27.8 mmol/L (20.0-31.0); Calcium 9.1 mg/dL (8.3-10.6); Chloride 106 mmol/L (98-107); Glucose 126 mg/dL (74-106); Potassium 4.3 mmol/L (3.5-5.1); Sodium 144 mmol/L (136-145); Total Protein 7.0 g/dL (5.7-8.2)
[2025-01-18 21:47] LABS: PSA, Screening 1.0 ng/mL (<=4.5)
== END 2025-01-17 21:06 | disposition home or self-care (01) ==
LOC: NCHCN 21:05
PROVIDERS: PCP Family Medicine; Visit Provider Family Medicine
DX: I25.10 Atherosclerotic heart disease of native coronary artery without angina pectoris (principal); E78.49 Other hyperlipidemia; Z12.5 Encounter for screening for malignant neoplasm of prostate
CPT/HCPCS: 80053; 83721; 84153; 85027